=== PATIENT | female | born 1955 | race Two or more races ===

== ENCOUNTER 2022-11-09 16:57 | Emergency (ER) | payer OTHER ==
[~2022-11-09] VITALS: Ht 152.4 cm; Wt 53.1 kg
[2022-11-09] MEDS ORDERED: OZEMPIC0.25 MG/0. (17:16)
[2022-11-09] MEDS ORDERED: JARDIANCE10 MG (17:16)
[2022-11-09] MEDS ORDERED: ATORVASTATIN CA40 MG (17:16)
[2022-11-09] MEDS ORDERED: VITAMIN D21250 MCG (17:18)
[2022-11-09] MEDS ORDERED: CHILDREN'S ASPI81 MG (17:18)
[2022-11-09] MEDS ORDERED: PLAVIX75 MG (17:18)
[2022-11-09] MEDS ORDERED: LEVOTHYROXINE25 MCG (17:19)
[2022-11-09] MEDS ORDERED: GABAPENTIN600 MG (17:19)
== END 2022-11-09 21:06 | disposition home or self-care (01) ==
LOC: ER 16:57
DX: S88.012A Complete traumatic amputation at knee level, left lower leg, initial encounter (principal); S88.011A Complete traumatic amputation at knee level, right lower leg, initial encounter; W01.198A Fall on same level from slipping, tripping and stumbling with subsequent striking against other object, initial encounter; Y93.89 Activity, other specified; Y92.63 Factory as the place of occurrence of the external cause; S49.82XA Other specified injuries of left shoulder and upper arm, initial encounter; S59.802A Other specified injuries of left elbow, initial encounter

== ENCOUNTER 2023-09-24 09:22 | Emergency (ER) | payer OTHER ==
[~2023-09-24] VITALS: Ht 154.9 cm; Wt 80.7 kg
[~2023-09-24 09:22] MED LIST: ATORVASTATIN CA40 MG; CHILDREN'S ASPI81 MG; GABAPENTIN600 MG; JARDIANCE10 MG; LEVOTHYROXINE25 MCG; OZEMPIC0.25 MG/0.; PLAVIX75 MG; VITAMIN D21250 MCG
[2023-09-24] MEDS ORDERED: TIZANIDINE HCL2 M1 PO (11:35)
[2023-09-24] MEDS ORDERED: TYLENOL ARTHRI650 MG PO (11:35)
[2023-09-24] MEDS ORDERED: ACETAMINOPHEN 500 MG GEL..CAP PO ONE (11:45)
== END 2023-09-24 11:46 | disposition home or self-care (01) ==
LOC: ER 09:22
DX: S89.82XA Other specified injuries of left lower leg, initial encounter (principal); X58.XXXA Exposure to other specified factors, initial encounter; Y93.89 Activity, other specified; Y92.89 Other specified places as the place of occurrence of the external cause; Y99.8 Other external cause status; M79.605 Pain in left leg; E03.8 Other specified hypothyroidism; E05.80 Other thyrotoxicosis without thyrotoxic crisis or storm; E11.9 Type 2 diabetes mellitus without complications